=== PATIENT | male | born 1965 | race Two or more races ===

== ENCOUNTER 2019-04-23 12:13 | Inpatient (IN) | payer OTHER ==
[~2019-04-23] VITALS: Ht 180.3 cm; Wt 220.0 kg
--- NOTE | 2019-04-23 12:20 | NUR ---
"BIBRAFROM HOME FOR SOB ON EXERTION. 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
[2019-04-23] MEDS ORDERED: VANCOMYCIN 1 GM in IV D5W 250 ML IV ONE (12:30)
[2019-04-23] MEDS ORDERED: GENTAMICIN 80 MG in IV D5W 50 ML IV ONE (12:30)
[2019-04-23 12:38] LABS: BASOPHILS # (AUTO) 0.1 /CMM (0.0-0.2); BASOPHILS % (AUTO) 0.9 % (0.0-2.0); HEMATOCRIT 32 % (39-51); HEMOGLOBIN 9.8 g/dL (13.5-17.5); LYMPHOCYTES # (AUTO) 1.6 /CMM (0.8-4.8); LYMPHOCYTES % (AUTO) 13.4 % (20.0-44.0); MEAN CORPUSCULAR HGB CONC 31 g/dl (31.0-36.0); MEAN CORPUSCULAR VOLUME 79 fL (80-96); MONOCYTES # (AUTO) 1.2 /CMM (0.1-1.30); MONOCYTES % (AUTO) 10.2 % (2.0-12.0); NEUTROPHILS # (AUTO) 8.5 /CMM (1.8-8.9); NEUTROPHILS % (AUTO) 70.5 % (43.0-81.0); PLATELET COUNT (AUTO) 564 /CMM (150-450); RED BLOOD CELL COUNT(AUTO) 4.02 MIL/uL (4.5-6.0); WHITE BLOOD COUNT (AUTO) 12.1 K/uL (4.3-11.0)
[2019-04-23 12:48] LABS: CALCIUM, SERUM 8.5 mg/dL (8.5-10.1); CARBON DIOXIDE 29 mmol/L (21-32); CHLORIDE 103 mmol/L (98-107); CREATININE 0.8 mg/dL (0.6-1.3); GLUCOSE 112 mg/dL (74-106); POTASSIUM 3.5 mmol/L (3.5-5.1); SODIUM SERUM 137 mmol/L (136-145); UREA NITROGEN, BLOOD 13 mg/dL (7-18)
[2019-04-23 12:54] LABS: ALANINE AMINOTRANSFERASE 12 U/L (12-78); ALBUMIN 2.6 g/dL (3.4-5.0); ALKALINE PHOSPHATASE 68 U/L (46-116); ASPARTATE AMINOTRANSFERASE 11 U/L (15-37); BILIRUBIN,DIRECT 0.1 mg/dL (0.0-0.2); BILIRUBIN,TOTAL 0.3 mg/dL (0.2-1.0); TOTAL PROTEIN, SERUM 8.3 g/dL (6.4-8.2)
[2019-04-23 13:40] VITALS: BP 120/63
--- NOTE | 2019-04-23 13:56 | NUR ---
MEAT CUTTING TEACHER KHOA MEDINA [phone]
--- NOTE | 2019-04-23 14:56 | NUR ---
PT UNABLE TO GIVEN URINE AT THIS TIME. DR. JOYNER AWARE
--- NOTE | 2019-04-23 15:04 | NUR ---
REPORT GIVEN MONET VARMA FOR DANIEL
--- NOTE | 2019-04-23 15:28 | NUR ---
PT TRANSPORTED TO 3RD FLOOR
--- NOTE | 2019-04-23 16:28 | NUR ---
MS RN ADMITTING NOTES ADMITTED 54 Y/O MALE TO UNIT VIA GURNEY FROM [facility]. PT IS A/O X4. ABLE TO MAKE NEEDS KNOWN, WITH NO C/O PAIN OR DISCOMFORTS VOICED DURING ADMISSION. PT WITH ADMITTING DIAGNOSIS OF B/L LOWER EXTREMITIES CELLULITIS. ORIENTED TO STAFF AND ROOM. ON ROOM AIR, BREATHING EVEN AND UNLABORED. V/S TAKEN AND RECORDED. PHOTOS OF SKIN ISSUES TAKEN AND FILED IN CHART. PT WITH CLEAR LUNGS SOUNDS ON AUSCULTATION. ABDOMEN SOFT, NON-TENDER WITH + BOWELS SOUNDS ON FOUR QUADRANTS. PT WITH IV ACCESS ON LAC G #18 INTACT AND PATENT. SAFETY MEASURES INITIATED. BED IN LOW LOCKED POSITION WITH SIDE-RAILS UP X2. CALL LIGHT PLACED WITHIN EASY REACH OF PT. GRISELDA RIDLEY INFORMED OF PT'S ADMISSION TO UNIT, AWAITING ADMITTING ORDERS. WILL CONTINUE TO MONITOR PT.
[2019-04-23] MEDS ORDERED: BISACODYL (5 MG) 5 MG TABLET.DR PO PRN (17:30)
[2019-04-23] MEDS ORDERED: ZOLPIDEM TARTRATE 5 MG TABLET PO PRN (18:00)
[2019-04-23] MEDS ORDERED: ONDANSETRON HCL/PF 4 MG/2 ML VIAL IVP PRN (18:00)
[2019-04-23] MEDS ORDERED: MAGNESIUM HYDROXIDE 30 ML UDC PO PRN (18:00)
[2019-04-23] MEDS ORDERED: HYDROCODONE/APAP 5/325MG 1 EACH TABLET PO PRN (18:00)
[2019-04-23] MEDS ORDERED: MAG HYDROX/AL HYDROX/SIMETH 30 ML UDC PO PRN (18:00)
[2019-04-23] MEDS: ENOXAPARIN SODIUM 40 MG/0.4 ML DISP.SYRIN SQ SCH (18:27)
--- NOTE | 2019-04-23 18:31 | NUR ---
M/S RN CLOSING NOTES PATIENT IS CURRENTLY RESTING IN BED A/O x4. NO SIGNS OF ACUTE DISTRESS AND NO COMPLAINTS OF PAIN OR NAUSEA. ON ROOM AIR WITH BREATHING EVEN AND UNLABORED. PATIENT IS ABLE TO FOLLOW COMMANDS AND MAKE NEEDS KNOWN. IV ACCESS ON LAC G#18. SAFETY MEASURES ARE INITIATED WITH BED IN LOWEST POSTION, SIDE RAILS UP x2, AND CALL LIGHT WITHIN REACH. WILL ENDORSE TO ONCOMING NURSE ABOUT DANIEL.
--- NOTE | 2019-04-23 19:05 | NUR ---
RN MS OPENING NOTES RECEIVED PATIENT IN BED AWAKE ALERT AND ORIENTED X4 RESPIRATIONS EVEN AND UNLABORED WITH EQUAL RISE AND FALL OF CHEST, DENIES ANY PAIN OR DISCOMFORT AT THIS TIME, IV SITE TO LEFT AC #18 G SL INTACT AND PATENT, NO REDNESS, NO INFILTRATION PRESENT, ORIENTED TO STAFF AND CALL LIGHT AND KEPT WITH REACH, URINAL PROVIDED AND WITHIN REACH, MADE PATIENT AWARE TO CALL FOR ASSISTANCE AND TO NOT GET OUT OF BED UNASSISTED FOR SAFETY AND FALL PRECAUTIONS, VERBALIZES HE UNDERSTANDS , FLUIDS OFFERED, ALL NEEDS ATTENDED AT THIS TIME WILL CONTINUE TO MONITOR AND ATTEND TO NEEDS.
[2019-04-23 20:00] VITALS: BP 115/44
[2019-04-23] MEDS ORDERED: VANCOMYCIN 1 GM in IV D5W 250ml IV SCH (23:30)
[2019-04-23] MEDS ORDERED: VANCOMYCIN 1 GM VIAL ONE (23:55)
[2019-04-24 06:41] LABS: BASOPHILS # (AUTO) 0.1 /CMM (0.0-0.2); BASOPHILS % (AUTO) 0.6 % (0.0-2.0); EOSINOPHILS % (AUTO) 5.1 % (0.0-6.0); HEMATOCRIT 27 % (39-51); HEMOGLOBIN 8.7 g/dL (13.5-17.5); LYMPHOCYTES # (AUTO) 1.5 /CMM (0.8-4.8); LYMPHOCYTES % (AUTO) 15.8 % (20.0-44.0); MEAN CORPUSCULAR HGB CONC 32 g/dl (31.0-36.0); MEAN CORPUSCULAR VOLUME 78 fL (80-96); MONOCYTES # (AUTO) 1.1 /CMM (0.1-1.30); MONOCYTES % (AUTO) 11.7 % (2.0-12.0); NEUTROPHILS # (AUTO) 6.2 /CMM (1.8-8.9); NEUTROPHILS % (AUTO) 66.8 % (43.0-81.0); PLATELET COUNT (AUTO) 452 /CMM (150-450); RED BLOOD CELL COUNT(AUTO) 3.48 MIL/uL (4.5-6.0); WHITE BLOOD COUNT (AUTO) 9.4 K/uL (4.3-11.0)
[2019-04-24 06:48] LABS: CALCIUM, SERUM 8.2 mg/dL (8.5-10.1); CREATININE 0.6 mg/dL (0.6-1.3); PHOSPHORUS 3.4 mg/dL (2.5-4.9); POTASSIUM 3.6 mmol/L (3.5-5.1)
--- NOTE | 2019-04-24 07:00 | NUR ---
RN MS CLOSING NOTES PATIENT IN BED AWAKE ALERT AND ORIENTED X4 RESPIRATIONS EVEN AND UNLABORED WITH EQUAL RISE AND FALL OF CHEST, DENIES ANY PAIN OR DISCOMFORT AT THIS TIME, IV SITE TO LEFT AC #18 G SL INTACT AND PATENT, NO REDNESS, NO INFILTRATION PRESENT, CALL LIGHT KEPT WITH REACH, URINAL PROVIDED AND WITHIN REACH, MADE PATIENT AWARE TO CALL FOR ASSISTANCE AND TO NOT GET OUT OF BED UNASSISTED FOR SAFETY AND FALL PRECAUTIONS, VERBALIZES HE UNDERSTANDS , FLUIDS OFFERED, PERINEAL CARE PROVIDED, ALL NEEDS ATTENDED AT THIS TIME WILL CONTINUE TO MONITOR AND ATTEND TO NEEDS.
[2019-04-24 08:00] VITALS: BP 120/57
--- NOTE | 2019-04-24 08:00 | NUR ---
MS RN OPENING NOTES Received Patient asleep and resting in bed. VS stable with no acute distress. Breathing even and unlabored on room air with no respiratory distress. No signs and symptoms of pain. 18g PIV on LAC clean, intact, patent, and flushing well. Safety precautions in place. Bed locked and set to lowest position with side rails x 2 up. All needs rendered at this time. Call light within reach. Will continue to monitor.
[2019-04-24] MEDS ORDERED: FEE PK DOSING 1 MIN EA MC ONE (08:56)
--- NOTE | 2019-04-24 09:19 | NUR ---
WOUND CARE CONSULT: PT PRESENTS WITH REDNESS, SWELLING, WARMTH AND THICKENED SKIN TO BILATERAL LOWER LEGS WITH PURULENT DRAINAGE/WEEPING FROM RT LOWER LEG, PRESENT ON ADMISSION. PT NOTED TO HAVE SOME REDNESS/RASH TO GROIN/ABDOMINAL FOLDS AND PERINEUM, PRESENT ON ADMISSION. RECOMMENDATIONS MADE FOR SKIN PROTECTION AND DISCUSSED WITH NURSING STAFF. RECOMMEND DPM CONSULT FOR LOWER LEGS. DEFER TO DPM/VASCULAR TEAMS FOR LOWER LEGS. WILL SEE PRN. PT IS ON [employer] AIR BED. IN AGREEMENT WITH PLAN OF CARE. DR WALLS NOTIFIED ABOUT REQUEST FOR DPM CONSULT. Addendum: 04/24/19 at 0926 by DANYEL ZAMBRANO WNDNU Amended: Links added.
--- NOTE | 2019-04-24 10:30 | NUR ---
MS RN NOTES Explained and reviewed "Authorization for Use or Disclosure of Health Information" with Patient. Patient verbalized understanding and signed consent then placed in chart. Health Information to be released to [employer]. Handed health information to petroleum products sales representative, Delonte in front of Patient. Patient in stable condition. Will continue to monitor.
--- NOTE | 2019-04-24 10:43 | NUR ---
MS RN NOTES Per Britni VARMA, she will call the company who brought the Bariatric Bed to order the Overhead Trapeze.
--- NOTE | 2019-04-24 10:46 | NUR ---
MANAGER VAN PATIENT NEEDS OVER HEAD TRAPEZE FOR SHANA MAX 2 BED. MANAGER VAN CALLED DOWN TO [facility] AND SPOKE TO JOE AND HE WILL ORDER FROM [employer] TO BRING AND INSTALL ONTO BED. ALL DISCUSSED WITH EXERCISE RIDER.
[2019-04-24] MEDS: VANCOMYCIN 1.5 GM in IV D5W 500 ML IV SCH ×2 (11:55→22:03)
[2019-04-24] MEDS ORDERED: VANCOMYCIN 1 GM in IV NS 0.9% 250 ML IV SCH (12:00)
--- NOTE | 2019-04-24 14:03 | NUR ---
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 Per MD, place on contact isolation. Patient in stable condition. Will continue to monitor.
[2019-04-24 16:00] VITALS: BP 123/65
[2019-04-24] MEDS: CLOTRIMAZOLE 1% 15 GM TUBE TP SCH (17:07)
[2019-04-24] MEDS: MUPIROCIN OINT 2% 22 GM TUBE SCH (17:07)
[2019-04-24] MEDS: FERROUS SULFATE (325 MG) 325 MG/TAB TABLET PO SCH (17:36)
--- NOTE | 2019-04-24 19:19 | NUR ---
MS RN CLOSING NOTES Patient resting in bed. A/O x 4. VS stable with no acute distress. Breathing even and unlabored on room air with no respiratory distress. Denies pain. No signs and symptoms of pain. 18g PIV on LAC clean, intact, patent, and flushing well. RLE dressing clean, dry and intact. Bilateral lower extremities elevated with one pillow. Safety precautions in place. Bed locked and set to lowest position with side rails x 2 up. All needs rendered at this time. Call light within reach. Will endorse plan of care to oncoming shift.
--- NOTE | 2019-04-24 19:50 | NUR ---
RN OPENING NOTES: RECEIVED REPORT FROM DAYSHIFT RN NICK. FOUND Pt AWAKE, RESTING IN BED, WATCHING TV. ON ISO FOR MRSA NARES. Pt IS A/OX4, VERBAL, ABLE TO MAKE NEEDS KNOWN. IV ACCESS ON LAC #18G, SL. NO S/S OF ACUTE DISTRESS OR SOB NOTED. SAFETY MEASURES IN PLACE. BED LOW, LOCKED, HOB ELEVATED, SIDE RAILS UP, CALL LIGHT AND BEDSIDE TABLE WITHIN REACH. WILL CONTINUE TO MONITOR Pt's CONDITION AND SAFETY THROUGHOUT THE NIGHT.
[2019-04-24 20:00] VITALS: BP 123/65
[2019-04-24 20:34] VITALS: BP 123/60
[2019-04-24] MEDS: ENOXAPARIN SODIUM 40 MG/0.4 ML DISP.SYRIN SQ SCH (22:05)
--- NOTE | 2019-04-25 06:42 | NUR ---
RN CLOSING NOTES NO SIGNIFICANT CHANGES IN Pt's CONDITION. Pt REMAINS STABLE AT THIS TIME. NO S/S OF ACUTE DISTRESS OR SOB NOTED DURING THE NIGHT. Pt IS RESTING COMFORTABLY IN BED, WITH EVEN AND UNLABORED RESPIRATIONS. ALL NEEDS MET AND ATTENDED TO. SAFETY MEASURES IN PLACE. WILL ENDORSE TO DAYSHIFT RN FOR Pt's DANIEL.
[2019-04-25 06:53] LABS: BASOPHILS % (AUTO) 0.5 % (0.0-2.0); EOSINOPHILS % (AUTO) 4.3 % (0.0-6.0); HEMATOCRIT 30 % (39-51); HEMOGLOBIN 9.5 g/dL (13.5-17.5); LYMPHOCYTES # (AUTO) 1.4 /CMM (0.8-4.8); LYMPHOCYTES % (AUTO) 12.9 % (20.0-44.0); MEAN CORPUSCULAR HGB CONC 32 g/dl (31.0-36.0); MEAN CORPUSCULAR VOLUME 78 fL (80-96); MONOCYTES # (AUTO) 1.1 /CMM (0.1-1.30); MONOCYTES % (AUTO) 10.4 % (2.0-12.0); NEUTROPHILS # (AUTO) 7.7 /CMM (1.8-8.9); NEUTROPHILS % (AUTO) 71.9 % (43.0-81.0); PLATELET COUNT (AUTO) 474 /CMM (150-450); RED BLOOD CELL COUNT(AUTO) 3.81 MIL/uL (4.5-6.0); WHITE BLOOD COUNT (AUTO) 10.6 K/uL (4.3-11.0)
[2019-04-25 07:19] LABS: CALCIUM, SERUM 8.7 mg/dL (8.5-10.1); CREATININE 0.7 mg/dL (0.6-1.3); POTASSIUM 3.7 mmol/L (3.5-5.1)
[2019-04-25 07:43] LABS: IRON, SERUM 23 ug/dl (50-175); TOTAL IRON BINDING CAPACITY 155 ug/dl (250-450)
--- NOTE | 2019-04-25 07:50 | NUR ---
MS RN NOTES PATIENT IN BED, ALERT AND ORIENTED X 4. BREATHING EVEN AND UNLABORED RESPIRATIONS. DENIES PAIN, NO ACUTE DISTRESS, NO SOB NOTED. IV LAC #18G SALINE LOCKED, CLEAN, DRY, INTACT. SHOWS NO REDNESS, NO INFILTRATION. ALL PATIENT NEED MET. BED KEPT LOWEST POSITION, LOCKED, 2 SIDE RAILS UP. WILL CONTINUE TO MONITOR.
[2019-04-25 08:00] VITALS: BP 125/61
[2019-04-25] MEDS: VANCOMYCIN 1.5 GM in IV D5W 500 ML IV SCH (08:48)
[2019-04-25] MEDS: FERROUS SULFATE (325 MG) 325 MG/TAB TABLET PO SCH ×2 (08:51→17:17)
[2019-04-25] MEDS: CLOTRIMAZOLE 1% 15 GM TUBE TP SCH ×2 (08:52→17:25)
[2019-04-25] MEDS: MUPIROCIN OINT 2% 22 GM TUBE SCH ×2 (08:52→17:25)
[2019-04-25] MEDS ORDERED: FUROSEMIDE 20 MG/2 ML VIAL IV ONE (13:00)
[2019-04-25] MEDS: ALBUTEROL HALF STRENGTH 1.25 MG/3 ML VIAL.NEB NEB PRN (13:25)
[2019-04-25] MEDS: LINEZOLID RTU BAG 600 MG in PREMIX 1 EA IV SCH (13:50)
[2019-04-25 16:00] VITALS: BP 127/73
--- NOTE | 2019-04-25 18:11 | NUR ---
MS RN NOTES PATIENT IN BED, AWAKE, ALERT AND ORIENTED X 4. BREATHING EVEN AND UNLABORED RESPIRATIONS. DENIES PAIN, NO ACUTE DISTRESS, NO SOB NOTED. IV LAC SALINE LOCK, IV RAC SALINE LOCK, IV LEFT WRIST RUNNING ZYVOX. ALL SITES ARE CLEAN, DRY, INTACT. NO SIGNS OF INFILTRATION, NO REDNESS. ALL PATIENT NEEDS MET. BED KEPT LOWEST POSITION, WITH 2 SIDE RAILS UP, CALL LIGHT WITHIN REACH. WILL CONTINUE TO MONITOR.
--- NOTE | 2019-04-25 19:50 | NUR ---
RN OPENING NOTES: RECEIVED REPORT FROM DAYSWYFT AVANI NARVAEZ. FOUND Pt AWAKE, RESTING IN BED, WATCHING TV. ON ISO FOR MRSA NARES. Pt IS A/OX4, VERBAL, ABLE TO MAKE NEEDS KNOWN. IV ACCESS ON LAC #18G, SL & RAC #18G, SL & LWRIST #20G @TKO. NO S/S OF ACUTE DISTRESS OR SOB NOTED. SAFETY MEASURES IN PLACE. BED LOW, LOCKED, HOB ELEVATED, SIDE RAILS UP, CALL LIGHT AND BEDSIDE TABLE WITHIN REACH. WILL CONTINUE TO MONITOR Pt's CONDITION AND SAFETY THROUGHOUT THE NIGHT.
[2019-04-25 20:00] VITALS: BP 123/52
[2019-04-25] MEDS: ENOXAPARIN SODIUM 40 MG/0.4 ML DISP.SYRIN SQ SCH (20:38)
[2019-04-26] MEDS: LINEZOLID RTU BAG 600 MG in PREMIX 1 EA IV SCH ×2 (01:34→12:11)
[2019-04-26 06:34] LABS: CALCIUM, SERUM 8.6 mg/dL (8.5-10.1); CREATININE 0.7 mg/dL (0.6-1.3); POTASSIUM 3.8 mmol/L (3.5-5.1)
--- NOTE | 2019-04-26 07:34 | NUR ---
MS RN OPENING NOTES: RECEIVED PT AWAKE IN BED IN NO ACUTE SIGNS OF DISTRESS. HOB ELEVATED. A/O X2. ABLE TO MAKE NEEDS KNOWN, DENIES PAIN OR ANY DISCOMFORTS AT THIS TIME. ON ROOM AIR, BREATHING EVEN AND UNLABORED. CONTACT PRECAUTIONS MAINTAINED FOR MRSA OF WOUNDS AND NARES. IV ACCESSES ON LAC #18G, SL & RAC #18G, SL & L WRIST #20G @TKO. SAFETY MEASURES IN PLACE. BED IN LOW LOCKED POSITION WITH SIDE RAILS UP X2. CALL LIGHT AND BEDSIDE TABLE WITHIN EASY REACH OF PT. WILL CONTINUE TO MONITOR PT ACCORDINGLY.
[2019-04-26 08:00] VITALS: BP 116/67
[2019-04-26] MEDS: FERROUS SULFATE (325 MG) 325 MG/TAB TABLET PO SCH ×2 (08:19→16:58)
[2019-04-26] MEDS: CLOTRIMAZOLE 1% 15 GM TUBE TP SCH ×2 (08:20→16:58)
[2019-04-26] MEDS: Z GUARD REMEDY 2 OZ OINT TP PRN ×2 (08:20→16:58)
[2019-04-26] MEDS: MUPIROCIN OINT 2% 22 GM TUBE SCH ×2 (08:25→16:58)
[2019-04-26 16:00] VITALS: BP 145/74
--- NOTE | 2019-04-26 18:38 | NUR ---
MS RN CLOSING NOTES: PT IN BED AWAKE AND RESTING AT MODERATE HIGH BACKREST POSITION. A/O X3, SAME ABLE TO VERBALIZED NEEDS. ON PRN SUPPLEMENTAL 02 VIA N/C AT 2LPM, TOLERATING WELL WITH NO SOB NOTED AT THIS TIME. CONTACT PRECAUTIONS MAINTAINED FOR MRSA OF WOUNDS AND NARES. PT WITH IV ACCESSES ON LAC #18G, SL, RAC #18G, SL & L WRIST #20G @ TKO, NO S/S OF INFECTIONS OR REDNESS AT SITES NOTED. PT ASSISTED IN TURNING FROM SIDE TO SIDE Q 2HRS AND PRN. KEPT CLEAN, DRY AND COMFORTABLE AT ALL TIMES. SAFETY MEASURES KEPT IN PLACE. BED IN LOW LOCKED POSITION WITH SIDE RAILS UP X2. CALL LIGHT AND BEDSIDE TABLE WITHIN EASY REACH OF PT. WILL ENDORSE TO SKIN CARE INSTRUCTOR NURSE FOR DANIEL..
[2019-04-26 20:00] VITALS: BP 90/69
--- NOTE | 2019-04-26 20:00 | NUR ---
RN NOTES RECEIVED PT. AWAKE ON BED, A/OX4, OBESE, ON BARIMAXX BED, DENIES PAIN, NO SOB, CALL LIGHT WITHIN REACH, SIDERAILSUPX2, CONTINUE TO MONITOR
[2019-04-26] MEDS: ENOXAPARIN SODIUM 40 MG/0.4 ML DISP.SYRIN SQ SCH (21:50)
[2019-04-27] MEDS: LINEZOLID RTU BAG 600 MG in PREMIX 1 EA IV SCH (00:56)
[2019-04-27 06:47] LABS: CALCIUM, SERUM 8.4 mg/dL (8.5-10.1); CREATININE 0.6 mg/dL (0.6-1.3); POTASSIUM 4.1 mmol/L (3.5-5.1)
--- NOTE | 2019-04-27 06:48 | NUR ---
RN NOTES AWAKE, NOT IN DISTRESS, NO PAIN NOTED,. MORNING CARE RENDERED, PT. NEEDS ATTENDED
--- NOTE | 2019-04-27 07:20 | NUR ---
RN OPENING NOTES RECEIVED PATIENT IN BED RESTING. A/OX4, ABLE TO MAKE NEEDS KNOWN. NOT IN NAY FOR OF DISTRESS. NO SOB, ON 2LPM O2 SATTING 96%. DENIED PAIN OR DISCOMFORT AT THIS TIME. IV ACCESS INTACT AND PATENT. MAINTAINED ISOLATION PRECAUTIONS FOR MRSA NARES AND WOUNDS. KEPT CLEAN, SAFE AND COMFORTABLE. BED IN LOW/LOCKED PSOITION, SIDERAILS UP. ON BARIMAX BED. CALL LIGHT IN REACH. WILL CONT EMILIANO MONITOR ACCORDINGLY.
[2019-04-27 08:00] VITALS: BP 141/72
[2019-04-27] MEDS: FERROUS SULFATE (325 MG) 325 MG/TAB TABLET PO SCH ×2 (08:56→16:28)
[2019-04-27] MEDS: CLOTRIMAZOLE 1% 15 GM TUBE TP SCH ×2 (09:01→16:29)
[2019-04-27] MEDS: MUPIROCIN OINT 2% 22 GM TUBE SCH ×2 (09:01→16:29)
[2019-04-27] MEDS: LINEZOLID 600 MG TABLET PO SCH ×2 (13:28→21:24)
--- NOTE | 2019-04-27 14:00 | NUR ---
rn notes endorsed patient in stable condition to holger rivera for continuity of care.
--- NOTE | 2019-04-27 14:30 | NUR ---
m/s jawbone breaker: notes received pt in bed awake, a/ox4. no c/o pain or any discomfort at this time. f/u made to [facility] lab re: wound cx vre sensitivities, spoke to ashanti and will f/u with the results and will need a little bit of time as stated.
[2019-04-27 16:00] VITALS: BP 126/68
--- NOTE | 2019-04-27 16:39 | NUR ---
m/s assembly line upholsterer: notes resting comfortable in bed. asked if he wants pm care, stated, "no, not right now." instructed to call for assistance. will continue to monitor.
--- NOTE | 2019-04-27 18:35 | NUR ---
m/s cloth burler: notes pt resting comfortable in bed. no distress noted. needs attended. instructed to call for assistance.
--- NOTE | 2019-04-27 19:00 | NUR ---
m/s test operator: notes report given to kelsey (rn) for continuity of care.
--- NOTE | 2019-04-27 19:00 | NUR ---
MS RN OPENING NOTES: RECEIVED PATIENT RESTING IN BED COMFORTABLY, AWAKE A/O X4. NO C/O PAIN. NO SOB. CALL LIGHT WITHIN REACH. BED IN LOWEST AND LOCKED POSITION. ON CONTACT ISOLATION.
[2019-04-27 20:00] VITALS: BP 162/78
[2019-04-27] MEDS: ENOXAPARIN SODIUM 40 MG/0.4 ML DISP.SYRIN SQ SCH (21:26)
[2019-04-28] MEDS: ALBUTEROL HALF STRENGTH 1.25 MG/3 ML VIAL.NEB NEB PRN (01:48)
--- NOTE | 2019-04-28 01:53 | NUR ---
PATIENT COMPLAINED OF SOB. WHEEZING. CALLED RT BUCK AND PATIENT GIVEN BREATHING TREATMENT.
--- NOTE | 2019-04-28 06:55 | NUR ---
MS RN CLOSING NOTES: PATIENT RESTING COMFORTABLY IN BED, AWAKE ALERT AND ORIENTED X4. NO C/O PAIN. IV REINSERTED ON THE RIGHT HAND G24. CALL LIGHT WITHIN REACH. BED IN LOWEST AND LOCKED POSITION. NO ACUTE EVENTS OVERNIGHT.
[2019-04-28 07:23] LABS: CALCIUM, SERUM 8.6 mg/dL (8.5-10.1); CREATININE 0.6 mg/dL (0.6-1.3); POTASSIUM 4.7 mmol/L (3.5-5.1)
--- NOTE | 2019-04-28 07:25 | NUR ---
RN OPENING NOTES RECEIVED PATIENT IN BED RESTING. A/OX4, ABLE TO MAKE NEEDS KNOWN. NOT IN NAY FOR OF DISTRESS. NO SOB, ON 2LPM O2 SATTING 96%. DENIED PAIN OR DISCOMFORT AT THIS TIME. IV ACCESS INTACT AND PATENT. MAINTAINED ISOLATION PRECAUTIONS FOR MRSA NARES AND WOUNDS. KEPT CLEAN, SAFE AND COMFORTABLE. BED IN LOW/LOCKED PSOITION, SIDERAILS UP. ON BARIMAX BED. CALL LIGHT IN REACH. WILL CONT TO MONITOR ACCORDINGLY.
[2019-04-28] MEDS: ACETAMINOPHEN 325 MG TABLET PO PRN (07:42)
[2019-04-28 08:00] VITALS: BP 149/90
[2019-04-28] MEDS: LINEZOLID 600 MG TABLET PO SCH ×2 (09:12→21:26)
[2019-04-28] MEDS: FERROUS SULFATE (325 MG) 325 MG/TAB TABLET PO SCH ×2 (09:13→18:09)
[2019-04-28] MEDS: CLOTRIMAZOLE 1% 15 GM TUBE TP SCH ×2 (09:18→18:09)
[2019-04-28] MEDS: MUPIROCIN OINT 2% 22 GM TUBE SCH ×2 (09:18→18:10)
--- NOTE | 2019-04-28 10:00 | NUR ---
RN NOTES CALLED LAB, SPOKE WITH ROSARIO, AND FOLLOWED UP TH REPORT FOR AOUND CX VRE SENSITIVITIES. PER PAUL, "RESULTS NOT OUT YET" BUT SHE WILL CALL MARTIN BETTS TO FOLLOW UP. Addendum: 04/28/19 at 1010 by DARIN PARKER ROSARIO CALLED BACK AND SAYING THAT PER MARTIN BETTS, THE RESULTS WILL BE OUT TOMORROW
[2019-04-28] MEDS: LEVOFLOXACIN 750 MG /D5W 150ML 750 MG in PREMIX 1 EA IV SCH (11:48)
[2019-04-28 16:00] VITALS: BP 124/67
--- NOTE | 2019-04-28 19:38 | NUR ---
rn closing notes patient in stable condition. all needs attended and provided. all due meds given as ordered. kept patient safe and comfortable. turned and repositioned patient every 2hrs as needed. wound care rendered. bed in low/locked position, siderails upx2, call light in reach. endorsed to night rn for loni.
[2019-04-28 20:00] VITALS: BP 138/65
[2019-04-28] MEDS: ENOXAPARIN SODIUM 40 MG/0.4 ML DISP.SYRIN SQ SCH (21:16)
[2019-04-29] MEDS: ACETAMINOPHEN 325 MG TABLET PO PRN (05:09)
--- NOTE | 2019-04-29 05:09 | NUR ---
tyelnol administered prn per patient requst for lee of 3/10 pain as ordered.
[2019-04-29 07:13] LABS: BASOPHILS % (AUTO) 0.3 % (0.0-2.0); EOSINOPHILS % (AUTO) 11.6 % (0.0-6.0); HEMATOCRIT 31 % (39-51); LYMPHOCYTES # (AUTO) 1.5 /CMM (0.8-4.8); LYMPHOCYTES % (AUTO) 15.1 % (20.0-44.0); MEAN CORPUSCULAR HGB CONC 32 g/dl (31.0-36.0); MEAN CORPUSCULAR VOLUME 78 fL (80-96); MONOCYTES # (AUTO) 0.9 /CMM (0.1-1.30); MONOCYTES % (AUTO) 8.8 % (2.0-12.0); NEUTROPHILS # (AUTO) 6.4 /CMM (1.8-8.9); NEUTROPHILS % (AUTO) 64.2 % (43.0-81.0); PLATELET COUNT (AUTO) 442 /CMM (150-450); RED BLOOD CELL COUNT(AUTO) 4.01 MIL/uL (4.5-6.0)
[2019-04-29 07:25] LABS: CALCIUM, SERUM 8.8 mg/dL (8.5-10.1); CREATININE 0.7 mg/dL (0.6-1.3); POTASSIUM 4.1 mmol/L (3.5-5.1)
[2019-04-29 08:00] VITALS: BP 151/81
--- NOTE | 2019-04-29 08:00 | NUR ---
MS RN OPENING NOTES Received Patient resting in bed. A/O x 4. VS stable with no acute distress. Breathing even and unlabored on room air with no respiratory distress. Denies pain. 24g PIV on right hand clean, intact, patent and flushing well. Lower extremity dressings clean, dry and intact. Safety precautions in place. Bed locked and set to lowest position with side rails x 2 up. All needs rendered at this time. Call light within reach. Will continue to monitor.
[2019-04-29] MEDS: FERROUS SULFATE (325 MG) 325 MG/TAB TABLET PO SCH ×2 (09:10→18:35)
[2019-04-29] MEDS: LINEZOLID 600 MG TABLET PO SCH ×2 (09:10→21:13)
[2019-04-29] MEDS: CLOTRIMAZOLE 1% 15 GM TUBE TP SCH ×2 (09:11→18:36)
[2019-04-29] MEDS: MUPIROCIN OINT 2% 22 GM TUBE SCH ×2 (09:12→18:35)
[2019-04-29] MEDS: LEVOFLOXACIN 750 MG /D5W 150ML 750 MG in PREMIX 1 EA IV SCH (12:53)
[2019-04-29 16:00] VITALS: BP 141/75
[2019-04-29] MEDS: LACTOBACILLUS RHAMNOSUS GG 1 EACH CAP.SPRINK PO SCH (18:35)
--- NOTE | 2019-04-29 19:01 | NUR ---
MS RN CLOSING NOTES Patient resting in bed and watching TV. A/O x 4. VS stable with no acute distress. Breathing even and unlabored on room air with no respiratory distress. Denies pain. 24g PIV on right hand clean, intact, patent and flushing well. Lower extremity dressings clean, dry and intact. Safety precautions in place. Bed locked and set to lowest position with side rails x 4 up. All needs rendered at this time. Call light within reach. Will endorse plan of care to oncoming shift.
[2019-04-29 20:00] VITALS: BP 135/72
[2019-04-29] MEDS: ENOXAPARIN SODIUM 40 MG/0.4 ML DISP.SYRIN SQ SCH (21:14)
--- NOTE | 2019-04-29 21:20 | NUR ---
PATIENT REFUSING PICTURES OF HIS GROIN BEING TAKEN, ABD FOLDS. STATES "I DON'T WANT YOU TAKNING PICTURES OF THOSE AREAS. I DON'T KNOW WHAT USE THEY ARE, JUDI WHERE THOSE PICTURES ARE GOING." INFORMED PICTURES GO TO CHART FOR RECORD KEEPING VERBALIZED UNDERSTANDING STILL REFUSING PICTURES OF GROIN AND ABD FOLDS. STATES ITS OK TO TOAKE PICTURES OF LEGS.
[2019-04-30 07:12] LABS: CALCIUM, SERUM 8.7 mg/dL (8.5-10.1); CREATININE 0.7 mg/dL (0.6-1.3); POTASSIUM 4.3 mmol/L (3.5-5.1)
--- NOTE | 2019-04-30 07:38 | NUR ---
MS RN NOTES PATIENT RECEIVED RESTING INSIDE ROOM. SLEEPING, AROUSABLE THROUGH VERBAL AND TACTILE STIMULI. NO ACUTE DISTRESS. DENIES ANY PAIN OR DISCOMFORT. MAINTAINED ISOLATION PRECAUTIONS. WILL CONTINUE TO MONITOR. BED LOCKED AND IN LOW POSITION. BILATERAL UPPER SIDE RAILS UP AND LOCKED. CALL LIGHT WITHIN EASY REACH
[2019-04-30 08:00] VITALS: BP 153/80
[2019-04-30] MEDS: LINEZOLID 600 MG TABLET PO SCH ×2 (08:38→20:21)
[2019-04-30] MEDS: FERROUS SULFATE (325 MG) 325 MG/TAB TABLET PO SCH ×2 (08:38→17:31)
[2019-04-30] MEDS: LACTOBACILLUS RHAMNOSUS GG 1 EACH CAP.SPRINK PO SCH ×2 (08:38→17:31)
[2019-04-30] MEDS: MUPIROCIN OINT 2% 22 GM TUBE SCH ×2 (08:39→18:25)
[2019-04-30] MEDS: CLOTRIMAZOLE 1% 15 GM TUBE TP SCH ×2 (08:39→18:25)
[2019-04-30] MEDS: LEVOFLOXACIN (750 MG) 750 MG TABLET PO SCH (12:21)
[2019-04-30 16:00] VITALS: BP 118/65
--- NOTE | 2019-04-30 18:51 | NUR ---
MS RN NOTES PATIENT RESTING INSIDE ROOM. AWAKE, ALERT AND ORIENTED. NO ACUTE DISTRESS. DENIES ANY PAIN OR DISCOMFORT. TRAPEZE IN PLACE ON BED AND PATIENT ABLE TO UTILIZE PROPERLY. PATIENT KEPT CLEAN, DRY AND COMFORTABLE. PROVIDED WITH CALM, SAFE, HAZARD-FREE ENVIRONMENT. MAINTAINED ISOLATION PRECAUTIONS. CALL LIGHT WITHIN EASY REACH
--- NOTE | 2019-04-30 19:45 | NUR ---
MS RN OPENING NOTES RECEIVED PATIENT FROM MORNING SHIFT, ALERT AND ORIENTED X 4. VERBALLY RESPONSIVE AND ABLE TO FOLLOW DIRECTIONS. BREATHING REGULAR AND UNLABORED ON ROOM AIR. RIGHT HAND IV LINE G24 INTACT AND PATENT, FLUSHING WELL WITH NO BLEEDING OR S/S OF INFECTION/INFILTRATION NOTED. NO COMPLAINTS OF PAIN/DISCOMFORT REPORTED OF THE TIME. ON CONTACT ISOLATION, PROPER HAND WASHING AND ISOLATION PRECAUTION OBSERVED. BED LOW AND LOCKED ON SEMI FOWLERS POSITION. CALL LIGHT IN REACH. WILL CONTINUE TO MONITOR.
[2019-04-30 20:00] VITALS: BP 148/74
[2019-04-30] MEDS: ENOXAPARIN SODIUM 40 MG/0.4 ML DISP.SYRIN SQ SCH (20:21)
[2019-04-30 22:00] VITALS: BP 148/74
--- NOTE | 2019-05-01 06:20 | NUR ---
MS RN CLOSING NOTES RECEIVED PATIENT FROM MORNING SHIFT, ALERT AND ORIENTED X 4. VERBALLY RESPONSIVE AND ABLE TO FOLLOW DIRECTIONS. BREATHING REGULAR AND UNLABORED ON ROOM AIR. RIGHT HAND IV LINE G24 INTACT AND PATENT, FLUSHING WELL WITH NO BLEEDING OR S/S OF INFECTION/INFILTRATION NOTED. NO COMPLAINTS OF PAIN/DISCOMFORT REPORTED WITHIN THE SHIFT. MAINTAINED ON CONTACT ISOLATION. WOUND TREATMENTS PROVIDED. BED LOW AND LOCKED ON SEMI FOWLERS POSITION. CALL LIGHT IN REACH. WILL ENDORSE TO MORNING SHIFT FOR DANIEL.
--- NOTE | 2019-05-01 07:45 | NUR ---
MS/RN - Assessment Patient is awake, A/O x 4, denies pain, stable on room air. Saline lock on the right hand is patent, intact, with no signs of infiltration. Will do wound treatment as ordered. No labs today. All needs attended. Fall precautions maintained. 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 Awaiting acceptance from SNF. Will continue with current medical management.
[2019-05-01 08:00] VITALS: BP 157/75
[2019-05-01] MEDS: CLOTRIMAZOLE 1% 15 GM TUBE TP SCH ×2 (08:05→16:33)
[2019-05-01] MEDS: LACTOBACILLUS RHAMNOSUS GG 1 EACH CAP.SPRINK PO SCH ×2 (08:05→16:33)
[2019-05-01] MEDS: LINEZOLID 600 MG TABLET PO SCH ×2 (08:05→21:18)
[2019-05-01] MEDS: FERROUS SULFATE (325 MG) 325 MG/TAB TABLET PO SCH ×2 (08:05→16:33)
[2019-05-01] MEDS: MUPIROCIN OINT 2% 22 GM TUBE SCH ×2 (08:06→16:34)
[2019-05-01] MEDS: LEVOFLOXACIN (750 MG) 750 MG TABLET PO SCH (11:35)
[2019-05-01 16:00] VITALS: BP 139/87
--- NOTE | 2019-05-01 18:21 | NUR ---
MS/RN - End of shift assessment No significant change in condition seen, remain afebrile, not in any form of distress. Still waiting for acceptance from SNF. Will continue with current plan of care.
[2019-05-01 20:00] VITALS: BP 130/69
--- NOTE | 2019-05-01 20:00 | NUR ---
MS RN NOTES RECEIVED PATIENT AWAKE IN BED WITH NO DISTRESS NOTED. CALL LIGHT WITHIN REACH. NO C/O PAIN OR DISCOMFORT. NO C/O PAIN OR DISCOMFORT. PERIPHERAL LINE INTACT AND PATENT. ROOM FREE OF CLUTTER AND BELONGINGS KEPT NEAR BEDSIDE. BED IN LOW LOCK SETTING. WILL CONTINUE TO MONITOR.
[2019-05-01] MEDS: ENOXAPARIN SODIUM 40 MG/0.4 ML DISP.SYRIN SQ SCH (21:18)
--- NOTE | 2019-05-02 06:47 | NUR ---
MS RN NOTES PATIENT ASLEEP IN BED WITH NO DISTRESS NOTED. CALL LIGHT WITHIN REACH. ALL DUE MEDS GIVEN ORDERED WITH NO ASE NOTED. PERIPHERAL LINE PULLED OUT, PER PATIENT HE DOES NOT TAKE ANY IV MEDS AND DOES NOT WANT PERIPHERAL LINE REPLACED AT THIS TIME. WILL ENDORSE TO ONCOMING SHIFT AND AM MD. BLE WOUND CARE RENDERED AND TOLERATED WELL. NO C/O PAIN OR DISCOMFORT. BED IN LOW LOCK SETTING. ALL BELONGINGS KEPT NEAR BEDSIDE.
--- NOTE | 2019-05-02 07:33 | NUR ---
MS RN NOTES PATIENT RECEIVED RESTING INSIDE ROOM. AWAKE, ALERT AND ORIENTED X 4, NO ACUTE DISTRESS. DENIES ANY PAIN OR DISCOMFORT. NO CHANGES IN LOC NOTED AT THIS TIME. PATIENT CALM AND RELAXED. NO IV ON PATIENT, PER SHIFT CHANGE REPORT, PATIENT REFUSES IV INSERTION. SPOKE WITH PATIENT, RISKS AND BENEFITS EXPLAINED BUT TO NO AVAIL. MD AWARE. WILL CONTINUE TO MONITOR. BED LOCKED AND IN LOW POSITION. BILATERAL UPPER SIDE RAILS UP AND LOCKED. MAINTAINED ISOLATION PRECAUTIONS. CALL LIGHT WITHIN EASY REACH
[2019-05-02 08:00] VITALS: BP 166/80
[2019-05-02] MEDS: LINEZOLID 600 MG TABLET PO SCH ×2 (08:41→20:30)
[2019-05-02] MEDS: FERROUS SULFATE (325 MG) 325 MG/TAB TABLET PO SCH ×2 (08:41→17:17)
[2019-05-02] MEDS: LACTOBACILLUS RHAMNOSUS GG 1 EACH CAP.SPRINK PO SCH ×2 (08:41→17:17)
[2019-05-02] MEDS: MUPIROCIN OINT 2% 22 GM TUBE SCH ×2 (08:48→17:19)
[2019-05-02] MEDS: CLOTRIMAZOLE 1% 15 GM TUBE TP SCH ×2 (08:48→17:19)
[2019-05-02] MEDS: LEVOFLOXACIN (750 MG) 750 MG TABLET PO SCH (12:16)
[2019-05-02 16:00] VITALS: BP 129/81
--- NOTE | 2019-05-02 19:16 | NUR ---
MS RN NOTES PATIENT RESTING INSIDE ROOM. NO ACUTE DISTRESS. DENIES ANY PAIN OR DISCOMFORT. PATIENT KEPT CLEAN, DRY AND COMFORTABLE. PROVIDED WITH CALM, SAFE, HAZARD-FREE ENVIRONMENT. MAINTAINED ISOLATION PRECAUTIONS. WILL ENDORSE TO INCOMING SHIFT FOR DANIEL. BED LOCKED AND IN LOW POSITION. BILATERAL UPPER SIDE RAILS UP AND LOCKED. CALL LIGHT WITHIN EASY REACH
--- NOTE | 2019-05-02 19:40 | NUR ---
MS RN OPENING NOTES RECEIVED PATIENT FROM MORNING SHIFT, ALERT AND ORIENTED X 4. VERBALLY RESPONSIVE AND ABLE TO FOLLOW DIRECTIONS. BREATHING REGULAR AND UNLABORED ON ROOM AIR. NO IV ACCESS. NO COMPLAINTS OF PAIN/DISCOMFORT REPORTED OF THE TIME. ON CONTACT ISOLATION, PROPER HAND WASHING AND ISOLATION PRECAUTION OBSERVED. BED LOW AND LOCKED ON SEMI FOWLERS POSITION. CALL LIGHT IN REACH. WILL CONTINUE TO MONITOR.
[2019-05-02 20:23] VITALS: BP 130/71
[2019-05-02] MEDS: ENOXAPARIN SODIUM 40 MG/0.4 ML DISP.SYRIN SQ SCH (20:31)
[2019-05-02 22:00] VITALS: BP 130/71
--- NOTE | 2019-05-03 06:20 | NUR ---
MS RN CLOSING NOTES RECEIVED PATIENT FROM MORNING SHIFT, ALERT AND ORIENTED X 4. VERBALLY RESPONSIVE AND ABLE TO FOLLOW DIRECTIONS. BREATHING REGULAR AND UNLABORED ON ROOM AIR. NO IV ACCESS, REFUSED REINSERTION OFFERED 3X, RISK AND BENEFITS EXPLAINED. NO COMPLAINTS OF PAIN/DISCOMFORT REPORTED WITHIN THE SHIFT. MAINTAINED ON CONTACT ISOLATION. WOUND TREATMENTS PROVIDED. BED LOW AND LOCKED ON SEMI FOWLERS POSITION. CALL LIGHT IN REACH. WILL ENDORSE TO MORNING SHIFT FOR DANIEL.
--- NOTE | 2019-05-03 07:15 | NUR ---
RN OPENING NOTES RECEIVED PATIENT IN BED RESTING. A/OX4, ABLE TO MAKE NEEDS KNOWN. NOT IN ANY FORM OF DISTRESS. NO SOB, ON 2LPM O2 SATTING 96%. DENIED PAIN OR DISCOMFORT AT THIS TIME. NO IV ACCESS NOTED. MAINTAINED ISOLATION PRECAUTIONS FOR MRSA NARES AND WOUNDS. KEPT CLEAN, SAFE AND COMFORTABLE. BED IN LOW/LOCKED PSOITION, SIDERAILS UP. ON BARIMAX BED. CALL LIGHT IN REACH. WILL CONT TO MONITOR ACCORDINGLY.
[2019-05-03 08:00] VITALS: BP 122/69
--- NOTE | 2019-05-03 08:30 | NUR ---
rn notes offered turning and repositioning. patient refused and stated "im ok, i can move". reminded patient that he needs to move and turn while in bed to prevent bedsores, patient verbalized understanding.
[2019-05-03] MEDS: LACTOBACILLUS RHAMNOSUS GG 1 EACH CAP.SPRINK PO SCH ×2 (08:37→16:19)
[2019-05-03] MEDS: FERROUS SULFATE (325 MG) 325 MG/TAB TABLET PO SCH ×2 (08:37→16:19)
[2019-05-03] MEDS: CLOTRIMAZOLE 1% 15 GM TUBE TP SCH ×2 (08:38→16:22)
[2019-05-03] MEDS: MUPIROCIN OINT 2% 22 GM TUBE SCH ×2 (08:38→16:22)
[2019-05-03] MEDS: LINEZOLID 600 MG TABLET PO SCH ×2 (08:41→21:16)
[2019-05-03 16:00] VITALS: BP 146/75
[2019-05-03] MEDS: LEVOFLOXACIN (750 MG) 750 MG TABLET PO SCH (16:19)
--- NOTE | 2019-05-03 19:04 | NUR ---
RN CLOSING NOTES PATIENT IN STABLE CONDITION. ALL NEEDS ATTENDED AND PROVIDED. ALL DUE MEDICATION GIVEN ORDERED. KEPT PATIENT SAFE AND COMFORTABLE. BED IN LOW/LOCKED POSITION. SIDERAILS UP, CALL LIGHT IN REACH. WILL ENDORSED TO NIGHT RN FOR DANIEL.
[2019-05-03 20:00] VITALS: BP 144/74
[2019-05-03] MEDS: ENOXAPARIN SODIUM 40 MG/0.4 ML DISP.SYRIN SQ SCH (21:16)
--- NOTE | 2019-05-04 06:26 | NUR ---
MS RN NOTES AWAKE & RESPONSIVE. NOT IN ANY DISTRESS. NO SOB NOTED. DENIES ANY PAIN OR DISCOMFORT AT THIS TIME. AM CARE DONE. MONITORED ACCORDINGLY. CALL LIGHT WITHIN REACH. BED IN LOWEST POSITION. SR UP X 2 FOR SAFETY. WILL ENDORSE TO NEXT SHIFT.
--- NOTE | 2019-05-04 07:14 | NUR ---
RN OPENING NOTE PT WAS RECEIVED IN BED AT LOWEST AND LOCKED POSITION WITH SIDE RAILS UP X2, A/O X4 BREATHING EVEN AND UNLABORED ON RA, NO S/S OF ANY DISTRESS OR PAIN AT THIS TIME, NO IV ACCESS, AWAITING PLACEMENT, SAFETY PRECAUTIONS IN PLACE, CALL LIGHT IN REACH, WILL MONITOR ACCORDINGLY
[2019-05-04 08:00] VITALS: BP 147/78
[2019-05-04] MEDS: FERROUS SULFATE (325 MG) 325 MG/TAB TABLET PO SCH ×2 (08:12→16:24)
[2019-05-04] MEDS: LACTOBACILLUS RHAMNOSUS GG 1 EACH CAP.SPRINK PO SCH ×2 (08:12→16:24)
[2019-05-04] MEDS: LINEZOLID 600 MG TABLET PO SCH ×2 (08:12→21:42)
[2019-05-04] MEDS: MUPIROCIN OINT 2% 22 GM TUBE SCH ×2 (08:13→16:24)
[2019-05-04] MEDS: CLOTRIMAZOLE 1% 15 GM TUBE TP SCH ×2 (08:13→16:24)
[2019-05-04] MEDS: LEVOFLOXACIN (750 MG) 750 MG TABLET PO SCH (11:29)
[2019-05-04 16:00] VITALS: BP 122/75
--- NOTE | 2019-05-04 18:13 | NUR ---
RN CLOSING NOTE PT IN BED AT LOWEST AND LOCKED POSITION WITH SIDE RAILS UP X2, A/O X4 BREATHING EVEN AND UNLABORED WITH NO DISTRESS OR PAIN AT THIS TIME, ALL NEEDS ATTENDED THROUGHOUT SHIFT, SAFETY PRECAUTIONS IN PLACE, CALL LIGHT IN REACH, WILL ENDORSE TO NIGHT RN FOR DANIEL.
--- NOTE | 2019-05-04 19:15 | NUR ---
MS RN NOTES RECEIVED PT IN BED AWAKE AND ABLE TO MAKE NEEDS KNOWN. PT A/O X3. RESPIRATIONS EVEN AND UNLABORED WITH NO S/S OF ACUTE DISTRESS OR SOB NOTED. NO COMPLAINTS OF PAIN AT THIS TIME. SAFETY MEASURES IN PLACE WITH BED IN LOWEST LOCKED POSITION WITH SIDE RAILS UP X2. CALL LIGHT WITHIN REACH. WILL CONTINUE TO MONITOR.
[2019-05-04 20:00] VITALS: BP 138/66
[2019-05-04] MEDS: ENOXAPARIN SODIUM 40 MG/0.4 ML DISP.SYRIN SQ SCH (22:11)
--- NOTE | 2019-05-05 07:46 | NUR ---
MS RN NOTES PT IN BED AWAKE AND ABLE TO MAKE NEEDS KNOWN. PT A/O X3. RESPIRATIONS EVEN AND UNLABORED WITH NO S/S OF ACUTE DISTRESS OR SOB NOTED THROUGHOUT SHIFT. NO COMPLAINTS OF PAIN AT THIS TIME. SAFETY MEASURES IN PLACE WITH BED IN LOWEST LOCKED POSITION WITH SIDE RAILS UP X2. PT KEPT CLEAN, DRY, AND COMFORTABLE. CALL LIGHT WITHIN REACH. WILL ENDORSE TO ONCOMING NURSE FOR DANIEL.
[2019-05-05 07:56] VITALS: BP 121/66
[2019-05-05 08:00] VITALS: BP 121/66
--- NOTE | 2019-05-05 08:00 | NUR ---
RN NOTES RECEIVED PATIENT IN THE BED OBESE IN BARIATRIC BED, AND FORRESTE. PATIENT A/O X3, NO ACUTE RESPIRATORY DISTRESS UNLABORED BREATHING. PATIENT REFUSED PAIN , BED BOUND WITH MAXIMUM ASSIST TURN AND REPOSTION Q 2 HR. PATIENT HAS A GENERALIZED EDEMA BLE, AND GROIN AREAS, REDNESS ABDOMINAL FOLDS, AND CELLULITIS BLE. DRESSING CHANGED, AND APPLIED PRESSURE DRESSING. PATIENT TOLERATED BREAKFAST 100%. ADMINISTERED SCHEDULED MEDICATION. V/S STABLE. CALL LIGHT WITHIN TO REACH. PATIENT REFUSED IV ACCESS. GETTING PO ANTIBIOTICS. SAFETY PRECAUTION MAINTAINED ALL THE TIME.
[2019-05-05] MEDS: LINEZOLID 600 MG TABLET PO SCH ×2 (08:52→21:47)
[2019-05-05] MEDS: LACTOBACILLUS RHAMNOSUS GG 1 EACH CAP.SPRINK PO SCH ×2 (08:52→16:47)
[2019-05-05] MEDS: MUPIROCIN OINT 2% 22 GM TUBE SCH ×2 (08:52→16:47)
[2019-05-05] MEDS: FERROUS SULFATE (325 MG) 325 MG/TAB TABLET PO SCH ×2 (08:52→16:47)
[2019-05-05] MEDS: CLOTRIMAZOLE 1% 15 GM TUBE TP SCH ×2 (08:53→17:00)
--- NOTE | 2019-05-05 13:00 | NUR ---
RN NOTES PATIENT GOING TO D/C SNF PER HOSPITALIST ORDERS MAYI DUMONT.
[2019-05-05] MEDS: LEVOFLOXACIN (750 MG) 750 MG TABLET PO SCH (13:25)
[2019-05-05 16:00] VITALS: BP 138/77
--- NOTE | 2019-05-05 18:30 | NUR ---
RN NOTES PATIENT IN THE BED REFUSED PAIN, ADMINISTERED SCHEDULED MEDICATION, EAT DINNER 100 %, NEEDS ATTENDED AND ANTICIPATED. PATIENT USING TRAPEZE TO PUSH SELF IN THE BED, AND ASSIST TURN AND REPOSTION Q 2 HR. PATIENT WILL NOT DISCHARGE TODAY BECAUSE BARIATRIC BED NOT DELIVERED YET TO THE SNF. PATIENT AWARE OF. CALL LIGHT WITHIN TO REACH. ENDORSED ONCOMING NURSE FOLLOW PLAN OF CARE.
--- NOTE | 2019-05-05 19:15 | NUR ---
MS RN NOTES RECEIVED PT IN BED AWAKE AND ABLE TO MAKE NEEDS KNOWN. PT A/O X3. RESPIRATIONS EVEN AND UNLABORED WITH NO S/S OF ACUTE DISTRESS OR SOB NOTED. NO COMPLAINTS OF PAIN AT THIS TIME. PT NO NO IV ACCESS AT THIS TIME. SAFETY MEASURES IN PLACE WITH BED IN LOWEST LOCKED POSITION WITH SIDE RAILS UP X2. CALL LIGHT WITHIN REACH. WILL CONTINUE TO MONITOR.
[2019-05-05 20:00] VITALS: BP 152/76
[2019-05-05] MEDS: ENOXAPARIN SODIUM 40 MG/0.4 ML DISP.SYRIN SQ SCH (21:49)
--- NOTE | 2019-05-06 07:46 | NUR ---
MS RN NOTES PATIENT RECEIVED RESTING INSIDE ROOM. AWAKE, ALERT AND ORIENTED X 4, NO ACUTE DISTRESS. DENIES ANY PAIN OR DISCOMFORT. NO CHANGES IN LOC NOTED AT THIS TIME. PATIENT CALM AND RELAXED. MAINTAINED ISOLATION PRECAUTIONS. WILL CONTINUE TO MONITOR. BED LOCKED AND IN LOW POSITION. BILATERAL UPPER SIDE RAILS UP AND LOCKED. CALL LIGHT WITHIN EASY REACH
[2019-05-06 08:00] VITALS: BP 140/74
[2019-05-06] MEDS: FERROUS SULFATE (325 MG) 325 MG/TAB TABLET PO SCH ×2 (08:32→16:24)
[2019-05-06] MEDS: LINEZOLID 600 MG TABLET PO SCH ×2 (08:32→20:50)
[2019-05-06] MEDS: LACTOBACILLUS RHAMNOSUS GG 1 EACH CAP.SPRINK PO SCH ×2 (08:32→16:24)
[2019-05-06] MEDS: MUPIROCIN OINT 2% 22 GM TUBE SCH ×2 (08:33→16:25)
[2019-05-06] MEDS: CLOTRIMAZOLE 1% 15 GM TUBE TP SCH ×2 (10:33→16:25)
--- NOTE | 2019-05-06 11:40 | NUR ---
MS RN NOTES PATIENT WITH DISCHARGE PLANNING TO SNF, ATB TO CONTINUE PER ID RECOMMENDATION FOR DURATION. PLACED CALL TO DR SCHROEDER'S OFFICE, SPOKE WITH ANSWERING SERVICE, VERBALIZED THAT DR SCHROEDER WILL HAVE APPLICATIONS PROCESSOR CALL PAULINO FISHER FOR RECOMMENDATIONS.
--- NOTE | 2019-05-06 12:04 | NUR ---
MS RN NOTES RECEIVED CALL BACK FROM DEANDRE SAVAGE, ID HEALTH AND SAFETY INSTRUCTOR. ZYVOX AND LEVAQUIN PO TO HAVE A TOTAL DURATION 14 DAYS EACH.
[2019-05-06] MEDS: LEVOFLOXACIN (750 MG) 750 MG TABLET PO SCH (12:11)
[2019-05-06 16:00] VITALS: BP 137/78
--- NOTE | 2019-05-06 18:40 | NUR ---
MS RN NOTES PATIENT RESTING INSIDE ROOM. AWAKE, A/O X 4, NO ACUTE DISTRESS. PATIENT DENIES ANY PAIN OR DISCOMFORT. NO CHANGES IN LOC NOTED AT THIS TIME. MAINTAINED ISOLATION PRECAUTIONS. PATIENT ABLE TO UTILIZE OVERBED TRAPEZE. SAFETY PRECAUTIONS IN PLACE. WILL ENDORSE TO INCOMING SHIFT FOR DANIEL. BED LOCKED AND IN LOW POSITION. BILATERAL UPPER SIDE RAILS UP AND LOCKED. CALL LIGHT WITHIN EASY REACH
--- NOTE | 2019-05-06 19:23 | NUR ---
RN OPENING NOTES RECEIVED PATIENT IN BED AWAKE, RESTING. A/O X 4. RESPIRATIONS EVEN AND UNLABORED WITH EQUAL RISE AND FALL OF CHEST. NO IV SITE NOTED. PATIENT DENIES ANY PAIN OR DISCOMFORT AT THIS TIME. ALL NEEDS ATTENDED AT THIS TIME. WILL MAINTAIN ISOLATION PRECAUTIONS. PATIENT HAS OVERBED TRAPEZE AND IS ABLE TO UTILIZE IT. SAFETY PRECAUTIONS IMPLEMENTED; CALL LIGHT WITHIN REACH, BED LOWEST POSITION, BED LOCKED, BILATERAL UPPER SIDE RAILS UP AND LOCKED. WILL CONTINUE TO MONITOR PATIENT.
[2019-05-06 20:00] VITALS: BP 125/61
[2019-05-06 20:05] VITALS: BP 125/61
[2019-05-06] MEDS: ENOXAPARIN SODIUM 40 MG/0.4 ML DISP.SYRIN SQ SCH (20:52)
--- NOTE | 2019-05-07 06:15 | NUR ---
RN CLOSING NOTES PATIENT IN BED SLEEPING COMFORTABLY, EASILY AROUSABLE TO VOICE. RESPIRATIONS EVEN AND UNLABORED WITH EQUAL RISE AND FALL OF CHEST. NO IV SITE. NO SIGNS OF FACIAL GRIMACING INDICATING PAIN OR DISCOMFORT AT THIS TIME. ALL DUE MEDS GIVEN AND STABLE THROUGHOUT THE SHIFT. PATIENT KEPT CLEAN, DRY, AND COMFORTABLE. WOUND TREATMENT DONE. ALL NEEDS ATTENDED AT THIS TIME. ISOLATION PRECAUTIONS MAINTAINED. SAFETY PRECAUTIONS IMPLEMENTED; CALL LIGHT WITHIN REACH, BED LOWEST POSITION, BED LOCKED, BILATERAL UPPER SIDE RAILS UP AND LOCKED. WILL CONTINUE TO MONITOR PATIENT AND THEN WILL ENDORSE TO DAYSHIFT NURSE FOR CONTINUITY OF CARE.
[2019-05-07 06:58] LABS: ALBUMIN 2.8 g/dL (3.4-5.0); BILIRUBIN,TOTAL 0.2 mg/dL (0.2-1.0); CREATININE 0.9 mg/dL (0.6-1.3); TOTAL PROTEIN, SERUM 8.2 g/dL (6.4-8.2)
[2019-05-07 07:03] LABS: BASOPHILS # (AUTO) 0.1 /CMM (0.0-0.2); BASOPHILS % (AUTO) 0.7 % (0.0-2.0); EOSINOPHILS % (AUTO) 10.1 % (0.0-6.0); HEMATOCRIT 40 % (39-51); HEMOGLOBIN 12.7 g/dL (13.5-17.5); LYMPHOCYTES # (AUTO) 1.9 /CMM (0.8-4.8); MEAN CORPUSCULAR HGB CONC 32 g/dl (31.0-36.0); MEAN CORPUSCULAR VOLUME 79 fL (80-96); MONOCYTES % (AUTO) 9.9 % (2.0-12.0); NEUTROPHILS # (AUTO) 6.3 /CMM (1.8-8.9); NEUTROPHILS % (AUTO) 61.3 % (43.0-81.0); PLATELET COUNT (AUTO) 365 /CMM (150-450); RED BLOOD CELL COUNT(AUTO) 5.06 MIL/uL (4.5-6.0); WHITE BLOOD COUNT (AUTO) 10.3 K/uL (4.3-11.0)
--- NOTE | 2019-05-07 07:38 | NUR ---
MS RN NOTES PATIENT RECEIVED RESTING INSIDE ROOM. AWAKE, ALERT AND ORIENTED X 4, NO ACUTE DISTRESS, DENIES ANY PAIN OR DISCOMFORT. NO CHANGES IN LOC NOTED. PATIENT CALM AND RELAXED. MAINTAINED ISOLATION PRECAUTIONS. WILL CONTINUE TO MONITOR. BED LOCKED AND IN LOW POSITION. BILATERAL UPPER SIDE RAILS UP AND LOCKED. CALL LIGHT WITHIN EASY REACH
[2019-05-07 08:00] VITALS: BP 143/75
[2019-05-07] MEDS: LACTOBACILLUS RHAMNOSUS GG 1 EACH CAP.SPRINK PO SCH ×2 (08:24→16:48)
[2019-05-07] MEDS: LINEZOLID 600 MG TABLET PO SCH ×2 (08:24→20:47)
[2019-05-07] MEDS: FERROUS SULFATE (325 MG) 325 MG/TAB TABLET PO SCH ×2 (08:24→16:48)
[2019-05-07] MEDS: MUPIROCIN OINT 2% 22 GM TUBE SCH ×2 (08:26→16:49)
[2019-05-07] MEDS: CLOTRIMAZOLE 1% 15 GM TUBE TP SCH ×2 (08:26→16:49)
[2019-05-07] MEDS: LEVOFLOXACIN (750 MG) 750 MG TABLET PO SCH (12:01)
--- NOTE | 2019-05-07 15:08 | NUR ---
MS RN NOTES PLACED CALL TO [facility] ([phone]) TO GIVE REPORT, SPOKE WITH AVANI HAHN AND VERBALIZED THAT THEY HAVE NOT RECEIVED THE BARIATRIC BED YET. CASE MANAGEMENT MADE AWARE. WILL CONTINUE TO MONITOR
--- NOTE | 2019-05-07 15:18 | NUR ---
MS RN NOTES RECEIVED CALL BACK FROM AVANI HAHN FROM [facility] ([phone]). VERBALIZED THAT HER D.O.N. SAID THAT THE PATIENT'S BED IS ON THE WAY TO THE FACILITY. REPORT GIVEN FOR DANIEL. WILL CONTINUE TO MONITOR
[2019-05-07 16:00] VITALS: BP 138/72
--- NOTE | 2019-05-07 18:43 | NUR ---
MS RN NOTES PATIENT RESTING INSIDE ROOM. NO ACUTE DISTRESS. DENIES ANY PAIN OR DISCOMFORT. SAFETY PRECAUTIONS IN PLACE. MAINTAINED ISOLATION PRECAUTIONS. PATIENT KEPT CLEAN, DRY AND COMFORTABLE. WILL ENDORSE TO INCOMING SHIFT FOR DANIEL. BED LOCKED AND IN LOW POSITION. BILATERAL UPPER SIDE RAILS UP AND LOCKED. CALL LIGHT WITHIN EASY REACH.
--- NOTE | 2019-05-07 19:25 | NUR ---
MS/RN NOTES RECEIVED PATIENT LYING IN BED. PT. IS AWAKE, ALERT AND ORIENTED X3. BREATHING EVEN AND UNLABORED ON ROOM AIR. NO SOB, RESPIRATORY DISTRESS OR COMPLAINTS OF PAIN NOTED AT THIS TIME. PT. REMAINS WITH NO IV ACCESS, MD AWARE. PT. WILL BE DISCHARGED TONIGHT TO [facility], SCHEDULED PICKUP IS 1999. PER DAYSHIFT NURSE PT. EXITCARE, DISCHARGE PAPERWORK AND BELONGINGS LIST ARE SIGNED AND COMPLETED. ORIGINALS PLACED IN CHART. PER DAYSHIFT NURSE REPORT WAS GIVEN TO AVANI HAHN AT [facility]. BED LOCKED AND IN LOWEST POSITION, SIDE RAILS UP X3, BED ALARM ON, CALL LIGHT WITHIN REACH, WILL CONTINUE TO MONITOR.
--- NOTE | 2019-05-07 23:58 | NUR ---
MS/RN NOTES PT. IS AWAKE, ALERT AND ORIENTED X3. BREATHING EVEN AND UNLABORED ON ROOM AIR. NO SOB, RESPIRATORY DISTRESS OR COMPLAINTS OF PAIN NOTED AT THIS TIME. PT. EXITCARE, DISCHARGE PAPERWORK AND BELONGINGS LIST ARE SIGNED AND COMPLETED. ORIGINALS PLACED IN CHART. TRANSPORT ARRIVED TO [facility] PATIENT. REMOVED PT. ID BAND. ALL PT. BELONGINGS ACCOUNTED FOR AND PRESENT WITH PATIENT. PT. LEFT THE FLOOR IN STABLE CONDITION VIA GURNEY ACCOMPANIED BY EMT'S AT [id number].
== END 2019-05-07 22:05 | DRG 383 ==
LOC: ER 12:13 → MED 14:57
PROVIDERS: ADMIT Nurse Practitioner Acute Care; ATTEND Nurse Practitioner Acute Care
DX: L03.115 Cellulitis of right lower limb (principal); J15.6 Pneumonia due to other Gram-negative bacteria; E43 Unspecified severe protein-calorie malnutrition; I50.33 Acute on chronic diastolic (congestive) heart failure; D68.59 Other primary thrombophilia; E66.01 Morbid (severe) obesity due to excess calories; I11.0 Hypertensive heart disease with heart failure; Z68.44 Body mass index [BMI] 60.0-69.9, adult; L03.116 Cellulitis of left lower limb; I89.0 Lymphedema, not elsewhere classified; I70.0 Atherosclerosis of aorta; I73.9 Peripheral vascular disease, unspecified; D50.9 Iron deficiency anemia, unspecified; I87.2 Venous insufficiency (chronic) (peripheral); B95.62 Methicillin resistant Staphylococcus aureus infection as the cause of diseases classified elsewhere; B96.4 Proteus (mirabilis) (morganii) as the cause of diseases classified elsewhere; B96.5 Pseudomonas (aeruginosa) (mallei) (pseudomallei) as the cause of diseases classified elsewhere; B95.2 Enterococcus as the cause of diseases classified elsewhere; Z16.21 Resistance to vancomycin; Z22.322 Carrier or suspected carrier of Methicillin resistant Staphylococcus aureus
CPT/HCPCS: 36415; 71045-TC; 80048-TC; 80053-TC; 80061-TC; 80076-TC; 80202-TC; 83540-TC; 83605-TC; 83735-TC; 83880; 84100-TC; 84484-TC; 85025-TC; 85730-TC; 87040-TC; 87070-TC; 87081-TC; 87186-TC; 93307-TC; 93970-TC; 97110-TC; 97112-TC; 97116-TC; 97530-TC; A4216; A6253; A6403; G0378; J1580; J1650; J1940; J1956; J2020; J3370; J7050; J7060

== ENCOUNTER 2020-02-03 11:08 | Inpatient (IN) | payer MEDICARE, OTHER ==
[~2020-02-03] VITALS: Ht 180.3 cm; Wt 239.0 kg
[2020-02-03] MEDS ORDERED: TDAP [DIPH/PERTUSSIS/TET] 0.5 ML VIAL IM ONE ×2 (12:00→14:09)
--- NOTE | 2020-02-03 12:16 | NUR ---
MOVE SHEET SUBMITTED AND CALLED FOR MS BED.
[2020-02-03] MEDS ORDERED: FERR325T24 PO (12:17)
[2020-02-03] MEDS ORDERED: MAGN500C16 PO (12:17)
[2020-02-03] MEDS ORDERED: ERGO500014 MT (12:17)
[2020-02-03] MEDS ORDERED: IV NS 0.9% 500 ML BAG IV ONE (12:30)
[2020-02-03] MEDS ORDERED: PIPERACILLIN /TAZOBACTAM 3.375 G in IV D5W 50 ML IV ONE (12:30)
[2020-02-03 12:50] LABS: BASOPHILS # (AUTO) 0.1 /CMM (0.0-0.2); BASOPHILS % (AUTO) 0.5 % (0.0-2.0); EOSINOPHILS % (AUTO) 1.3 % (0.0-6.0); HEMATOCRIT 41 % (39-51); HEMOGLOBIN 12.8 g/dL (13.5-17.5); LYMPHOCYTES # (AUTO) 1.5 /CMM (0.8-4.8); LYMPHOCYTES % (AUTO) 9.4 % (20.0-44.0); MEAN CORPUSCULAR HGB CONC 31 g/dl (31.0-36.0); MEAN CORPUSCULAR VOLUME 83 fL (80-96); MONOCYTES # (AUTO) 1.1 /CMM (0.1-1.30); MONOCYTES % (AUTO) 7.1 % (2.0-12.0); NEUTROPHILS # (AUTO) 12.8 /CMM (1.8-8.9); NEUTROPHILS % (AUTO) 81.7 % (43.0-81.0); PLATELET COUNT (AUTO) 380 /CMM (150-450); RED BLOOD CELL COUNT(AUTO) 4.91 MIL/uL (4.5-6.0); WHITE BLOOD COUNT (AUTO) 15.7 K/uL (4.3-11.0)
--- NOTE | 2020-02-03 12:52 | NUR ---
[place] FROM HOME TO ER BED 7. AAOX4. NOT IN RESP DISTRESS. BROUGHT IN FOR A GROUND LEVEL FALL WHILE TAKING SHOWER. PER PT, HE SLIPPED LANDED ON THE GLASS SHOWER DOOR CAUSING IT TO SHATTER AND LANDED ON HIS BUTT. NOTED MULTIPLE ABBRASION ON L ELBOW, BILAT KNEES, ABDOMEN AND R FOOT. PT ALSO NOTED BILAT LOWER LEG SWELLING AND REDNESS. ALL [place] ARE INTACT. WAS AT THE BEDSIDE.
--- NOTE | 2020-02-03 12:58 | NUR ---
PAGED [facility].
[2020-02-03 13:04] LABS: CALCIUM, SERUM 8.7 mg/dL (8.5-10.1); POTASSIUM 3.6 mmol/L (3.5-5.1)
[2020-02-03 13:07] LABS: ALBUMIN 2.8 g/dL (3.4-5.0); BILIRUBIN,DIRECT 0.1 mg/dL (0.0-0.2); BILIRUBIN,TOTAL 0.3 mg/dL (0.2-1.0); TOTAL PROTEIN, SERUM 9.5 g/dL (6.4-8.2)
--- NOTE | 2020-02-03 13:29 | NUR ---
COVID SWAB DONE AND SENT TO LAB
[2020-02-03] MEDS ORDERED: ONDANSETRON HCL/PF 4 MG/2 ML VIAL IVP PRN (13:30)
[2020-02-03] MEDS ORDERED: ACETAMINOPHEN 325 MG TABLET PO PRN (13:30)
[2020-02-03] MEDS ORDERED: MAGNESIUM HYDROXIDE 30 ML UDC PO PRN (13:30)
[2020-02-03] MEDS ORDERED: HYDROCODONE/APAP 5/325MG TABLET PO PRN (13:30)
[2020-02-03] MEDS ORDERED: Z GUARD REMEDY 2 OZ OINT TP PRN (13:30)
[2020-02-03] MEDS ORDERED: MAG HYDROX/AL HYDROX/SIMETH 30 ML UDC PO PRN (13:30)
--- NOTE | 2020-02-03 13:50 | NUR ---
EMT AT THE BEDSIDE FOR WOUND CLEANING
[2020-02-03] MEDS ORDERED: CEFTRIAXONE 1 G in IV D5W 50 ML IV SCH ×2 (15:00→16:00)
--- NOTE | 2020-02-03 15:00 | NUR ---
CALLED RN SUP FOR ROOM
--- NOTE | 2020-02-03 15:31 | NUR ---
ROOM ASSIGNEMENT; 307-1 MS
--- NOTE | 2020-02-03 16:10 | NUR ---
REPORT GIVEN TO AVANI MENDOZA FOR DANIEL
--- NOTE | 2020-02-03 17:12 | NUR ---
PT TRANSPORTED TO UNIT ON [facility] WITH EMT AND RN AT BEDSIDE. PT IS IN STABLE CONDITION FOR TRANSPORT. NAD NOTED DURING TRANSPORT.
--- NOTE | 2020-02-03 18:25 | NUR ---
MS AVANI NOTES RECEIVED PT VIA GURNEY FROM ER DEPT, ARRIVED ON THE FLOOR AT 1710. PT AWAKE, A/OX4. PT TOLERATING RA, WITH NO ACUTE RESPIRATORY DISTRESS NOTED. PT DENIES ANY PAIN OR DISCOMFORT AT THE TIME WELL. PT ABLE TO PROVIDE MEDICAL HISTORY. PIV TO RHAND G20, STARTED WITH IV CEFTRIAXONE, INTACT AND FLUID INFUSING WELL. PT ORIENTED TO ROOM, STAFFS, ETC. PT KEPT COMFORTABLE. CALL LIGHT KEPT WITHIN REACH. PT'S BED IN LOWEST LOCKED POSITION WITH SRX3. WILL ENDORSE TO INCOMING NIGHT NURSE FOR BARIATRIC BED AND SKIN ASSESSMENT PICTURES.
[2020-02-03] MEDS: ENOXAPARIN SODIUM 40 MG/0.4 ML DISP.SYRIN SQ SCH (18:56)
--- NOTE | 2020-02-03 19:53 | NUR ---
MS RN OPENING NOTES RECEIVED PATIENT RESTING IN BED COMFORTABLY; A/OX4; BREATHING EVEN AND UNLABORED; TOLERATING ROOM AIR WELL; NO SOB NOTED; R HAND #20 SL INTACT AND PATENT, FLUSHING WELL; NO S/S OF REDNESS OR INFILTRATION NOTED; PER AM SHIFT, PATIENT AGREED FOR SKIN ASSESSMENT/PICTURES AFTER EATING DINNER; PATIENT ABLE TO MAKE NEEDS KNOWN; SAFETY PRECAUTIONS IMPLEMENTED; BED LOCKED IN LOW POSITION; SIDE RAILSX2; CALL LIGHT WITHIN EASY REACH; WILL CONT TO MONITOR
[2020-02-03 20:00] VITALS: BP 134/63
--- NOTE | 2020-02-03 21:56 | NUR ---
MS RN NOTES PER AM SHIFT, BARIATRIC BED ORDERED, AWAITING BED; WILL INFORM DAY SHIFT IF BED DOES NOT ARRIVE THROUGHOUT SHIFT
--- NOTE | 2020-02-04 01:43 | NUR ---
MS RN NOTES R HAND #20 SL IV PULLED OUT ON ACCIDENT HE WAS TRYING TO REPOSITION HIMSELF IN THE BED; IV TIP INTACT, NO S/S OF BLEEDING; PER PATIENT, HE WOULD LIKE TO REST PRIOR TO IV RE-INSERTION; PATIENT ALSO REFUSING SKIN ASSESSMENT/PICTURES AT THIS TIME; CHARGE NURSE AWARE; WILL CONT TO MONITOR
--- NOTE | 2020-02-04 04:49 | NUR ---
MS RN NOTES IV ACCESS OBTAINED, RIGHT HAND # 20 SL, INTACT AND PATENT, FLUSHING WELL; WILL CONT TO MONITOR
[2020-02-04 06:46] LABS: BASOPHILS % (AUTO) 0.5 % (0.0-2.0); EOSINOPHILS % (AUTO) 3.3 % (0.0-6.0); HEMATOCRIT 37 % (39-51); LYMPHOCYTES # (AUTO) 1.7 /CMM (0.8-4.8); LYMPHOCYTES % (AUTO) 15.9 % (20.0-44.0); MEAN CORPUSCULAR HGB CONC 32 g/dl (31.0-36.0); MEAN CORPUSCULAR VOLUME 82 fL (80-96); MONOCYTES # (AUTO) 0.9 /CMM (0.1-1.30); MONOCYTES % (AUTO) 8.7 % (2.0-12.0); NEUTROPHILS # (AUTO) 7.6 /CMM (1.8-8.9); NEUTROPHILS % (AUTO) 71.6 % (43.0-81.0); PLATELET COUNT (AUTO) 336 /CMM (150-450); RED BLOOD CELL COUNT(AUTO) 4.57 MIL/uL (4.5-6.0); WHITE BLOOD COUNT (AUTO) 10.6 K/uL (4.3-11.0)
--- NOTE | 2020-02-04 07:00 | NUR ---
MS RN CLOSING NOTES PATIENT RESTING IN BED COMFORTABLY; A/OX4; BREATHING EVEN AND UNLABORED; PATIENT ON ROOM AIR; TOLERATING WELL; PATIENT REFUSED SKIN ASSESSMENT/PICTURES; CHARGE NURSE AWARE; PATIENT ABLE TO MAKE NEEDS KNOWN; R HAND #20 SL INTACT AND PATENT, FLUSHING WELL; ALL NEEDS RENDERED; SAFETY PRECAUTIONS IMPLEMENTED; BED LOCKED IN LOW POSITION; SIDE RAILSX2; CALL LIGHT WITHIN REACH; WILL ENDORSE DANIEL TO ONCOMING SHIFT
--- NOTE | 2020-02-04 07:42 | NUR ---
RN OPENING NOTES RECEIVED PATIENT RESTING IN BED COMFORTABLY; ALERT AND ORIENTED X4. NO CARDIAC OR RESPIRATORY DISTRESS NOTED. NO SOB NOTED BREATHING EVEN AND UNLABORED; PATIENT ON ROOM AIR; TOLERATING WELL; IV ACCESS NOTED ON R HAND #20 SL INTACT AND PATENT, FLUSHING WELL; NO S/S OF INFECTION OR INFILTRATION NOTED. SAFETY PRECAUTIONS IMPLEMENTED; BED LOCKED IN LOW POSITION; SIDE RAILS X2; CALL LIGHT WITHIN REACH; BED ALARM ON. WILL CONT TO MONITOR.
[2020-02-04 07:46] LABS: CALCIUM, SERUM 8.5 mg/dL (8.5-10.1); CREATININE 0.9 mg/dL (0.6-1.3); MAGNESIUM 2.1 mg/dL (1.8-2.4); PHOSPHORUS 2.7 mg/dL (2.5-4.9); POTASSIUM 3.9 mmol/L (3.5-5.1)
[2020-02-04 08:00] VITALS: BP 148/66
[2020-02-04] MEDS: FERROUS SULFATE (325 MG) 325 MG/TAB TABLET PO SCH (08:10)
[2020-02-04] MEDS: MAGNESIUM OXIDE 400 MG TABLET PO SCH (08:10)
[2020-02-04] MEDS: MORPHINE SULFATE INJ 2 MG/ML DISP.SYRIN IV PRN ×2 (08:22→13:59)
--- NOTE | 2020-02-04 10:57 | NUR ---
WOUND CARE CONSULT: PT PRESENTS WITH RASH TO ABDOMINAL/GROIN FOLDS AND BUTTOCKS, LEFT ELBOW ABRASION, MULTIPLE SCRATCHES ON BODY, REDNESS TO LOWER LEGS WITH SOME BLEEDING TO TOES, PRESENT ON ADMISSION. RECOMMENDATIONS MADE FOR WOUND/SKIN CARE AND PROTECTION. DISCUSSED WITH NURSING STAFF. RECOMMEND DPM CONSULT. DR EARL NOTIFIED OF CONSULT REQUEST. PT STATES THAT HE FELL IN SHOWER AND SHATTERED GLASS SHOWER DOOR. SOCIAL SERVICE CONSULT PLACED. [facility] AIR BED ON ORDER. IN AGREEMENT WITH PLAN OF CARE.
[2020-02-04] MEDS: CEFTRIAXONE 2 G in IV D5W 100 ML IV SCH (11:17)
--- NOTE | 2020-02-04 14:00 | NUR ---
SCD PUMPS PT REFUSING TO USE SCP PUMPS. EXPLAINED RISKS, CONSEQUENCES AND NEGATIVE OUTCOMES OF NON COMPLIANT BEHAVIOR. ALSO EXPLIANED BENEFITS OF DVT PYMP. STILL REFUSED. PER PT, ITS UNCOMFORTABLE.
--- NOTE | 2020-02-04 14:30 | NUR ---
WOUND TX WOUND TX DONE WITH THE PT PER MD ORDERS. TOLERATED WELL.
[2020-02-04 16:00] VITALS: BP 159/84
[2020-02-04] MEDS: CLOTRIMAZOLE 1% 15 GM TUBE TP SCH (16:12)
--- NOTE | 2020-02-04 16:17 | NUR ---
11am: Fleet Operations Manager consult requested per MD Burciaga because the patient lives alone and fell. SW conducted the assessment at bedside. Patient was alert and orientated x4. Patient was able to confirm demographics from the face sheet. Patient reported that he has a walker and a cane at home for use, pt reports I only use it when I am sore. Ill likely use it more after this. Patient shared that in the past he did apply for In-Home Support Services but has not heard anything back. Patient reported that he would like more resources so he can hire help. Patient shared that he would like this help primarily to help him clean and run errands. Patient receives approximately $965 in Social Security Pathfinder App. Patient reported no history or drug/alcohol use. Patient does not report diagnosed psychiatric diagnosis. Patient reports no history or current thoughts of suicidal or homicidal ideation, I do not want to go out that way. This social worker masters will provide the In-Home Support Service application to the patient. This garbage pick up worker will also provide the eligibility criteria, how to apply by phone, mail, and fax that SYLVIA found directly off the [email or web address]/en/stgvpb-mld-kxkedzvv/ihss.html website. SW to remain available for all needs.
--- NOTE | 2020-02-04 19:00 | NUR ---
BARIATRIC BED PT WAS TRANSFERRED TO BARIATRIC BED WITH 7 PERSON ASSIST.
--- NOTE | 2020-02-04 19:22 | NUR ---
RN CLOSING NOTES PATIENT RESTING IN BED COMFORTABLY; ALERT AND ORIENTED X4. NO CARDIAC OR RESPIRATORY DISTRESS NOTED. NO SOB NOTED BREATHING EVEN AND UNLABORED; PATIENT ON ROOM AIR; TOLERATING WELL; IV ACCESS NOTED ON R HAND #20 SL INTACT AND PATENT, FLUSHING WELL; NO S/S OF INFECTION OR INFILTRATION NOTED. PT TRANSFERRED TO BARIATRIC BED. ALL NEEDS MET AND ATTENDED. PAIN MANAGED THROUGHOUT THE SHIFT. SAFETY PRECAUTIONS IMPLEMENTED; BED LOCKED IN LOW POSITION; SIDE RAILS X2; CALL LIGHT WITHIN REACH; BED ALARM ON. WILL CONT TO MONITOR.
[2020-02-04 20:00] VITALS: BP 132/65
--- NOTE | 2020-02-04 20:00 | NUR ---
MS RN OPENING NOTE: Received patient from morning nurse. Patient is in bed watching TV, comfortably. Patient denies pain or discomfort at this time. Patient is alert and oriented and makes his needs known. Patient on room air. No distress or SOB noted; patient breathing equal and unlabored. IV access noted on right hand, 20g, patent, flushes well, no redness, no infiltration. Safety precaution is in place, bed is locked, on the lowest level, alarm is on, side rails x2 are up, and call light is within reach. Will continue to monitor.
[2020-02-04] MEDS: ENOXAPARIN SODIUM 40 MG/0.4 ML DISP.SYRIN SQ SCH (21:42)
--- NOTE | 2020-02-05 06:52 | NUR ---
MS RN CLOSING NOTE: Patient in bed sleeping comfortably but easily aroused. Patient shows no signs of pain or discomfort at this time. Patient on room air. No distress or SOB noted; patient breathing equal and unlabored. Safety precaution is in place, bed is locked, on the lowest level, alarm is on, side rails x2 are up, and call light is within reach. Will endorse to next shift.
--- NOTE | 2020-02-05 07:50 | NUR ---
RN OPENING NOTE Patient is resting in bed, A/O x4, showing no signs of acute distress or SOB, stable on RA. IV line in the right hand is clean and intact flushing well. Patient has no complaints of pain at this time. Patient on bariatric mattress. patient uses urinal with assistance clear yellow output. Bed is in lowest position, side rails x3 in upright position, call light is within reach, fall safety and aspiration precautions enforced. Will continue with plan of care.
[2020-02-05 08:00] VITALS: BP 141/63
[2020-02-05] MEDS: CLOTRIMAZOLE 1% 15 GM TUBE TP SCH ×2 (09:00→17:37)
[2020-02-05] MEDS: FERROUS SULFATE (325 MG) 325 MG/TAB TABLET PO SCH (09:35)
[2020-02-05] MEDS: MAGNESIUM OXIDE 400 MG TABLET PO SCH (09:36)
[2020-02-05] MEDS: CEFTRIAXONE 2 G in IV D5W 100 ML IV SCH (12:44)
--- NOTE | 2020-02-05 18:42 | NUR ---
RN CLOSING NOTE Patient is resting in bed, A/O x4, showing no signs of acute distress or SOB, stable on RA. IV line in the right hand is clean and intact flushing well. Patient on bariatric mattress. Wound care completed as directed. All patient needs met, all due medications given, patient kept clean and dry throughout shift. Bed is in lowest position, side rails x3 in upright position, call light is within reach, fall safety and aspiration precautions enforced. Will endorse to shift supervisor film processing.
[2020-02-05 20:00] VITALS: BP 133/75
--- NOTE | 2020-02-05 20:00 | NUR ---
MS RN OPENING NOTE: Patient is awake and alert x 4, in bed, resting. Patient on room air. He is breathing well, unlabored and equal. Shows no signs of SOB or distress. Noted IV access on right hand 22g. Flushes well, patent, no redness, or infiltration. Patient denies pain or discomfort at this time. Patient on bariatric mattress. Safety precaution is in place, bed is in the lowest level, locks are on, alarm is on, side rails x2 are up, and call light is within reach. Will continue to monitor.
[2020-02-05 20:48] VITALS: BP 135/75
[2020-02-05] MEDS: ENOXAPARIN SODIUM 40 MG/0.4 ML DISP.SYRIN SQ SCH (20:56)
[2020-02-06 06:44] LABS: BASOPHILS % (AUTO) 0.3 % (0.0-2.0); EOSINOPHILS % (AUTO) 4.7 % (0.0-6.0); HEMATOCRIT 40 % (39-51); HEMOGLOBIN 12.6 g/dL (13.5-17.5); LYMPHOCYTES # (AUTO) 1.2 /CMM (0.8-4.8); LYMPHOCYTES % (AUTO) 11.5 % (20.0-44.0); MEAN CORPUSCULAR HGB CONC 32 g/dl (31.0-36.0); MEAN CORPUSCULAR VOLUME 83 fL (80-96); MONOCYTES # (AUTO) 0.9 /CMM (0.1-1.30); NEUTROPHILS # (AUTO) 7.7 /CMM (1.8-8.9); NEUTROPHILS % (AUTO) 74.5 % (43.0-81.0); PLATELET COUNT (AUTO) 327 /CMM (150-450); RED BLOOD CELL COUNT(AUTO) 4.77 MIL/uL (4.5-6.0); WHITE BLOOD COUNT (AUTO) 10.4 K/uL (4.3-11.0)
--- NOTE | 2020-02-06 06:49 | NUR ---
MS RN CLOSING NOTE: Patient in bed, awake and alert. Patient on room air. He is breathing well, unlabored and equal. Shows no signs of SOB or distress. Safety precaution is in place, bed is in the lowest level, locks are on, alarm is on, side rails x2 are up, and call light is within reach. Will endorse to morning shift.
[2020-02-06 06:55] LABS: CALCIUM, SERUM 8.9 mg/dL (8.5-10.1); CREATININE 0.7 mg/dL (0.6-1.3); POTASSIUM 4.2 mmol/L (3.5-5.1)
[2020-02-06 08:00] VITALS: BP 148/74
[2020-02-06] MEDS: FERROUS SULFATE (325 MG) 325 MG/TAB TABLET PO SCH (08:54)
[2020-02-06] MEDS: CLOTRIMAZOLE 1% 15 GM TUBE TP SCH (08:54)
[2020-02-06] MEDS: MAGNESIUM OXIDE 400 MG TABLET PO SCH (08:54)
[2020-02-06] MEDS ORDERED: CEPH-570 PO (09:52)
[2020-02-06] MEDS: CEFTRIAXONE 2 G in IV D5W 100 ML IV SCH (12:45)
--- NOTE | 2020-02-06 16:06 | NUR ---
SENIOR COUNSEL NOTE Patient is medically cleared for discharge. A/O x4, showing no signs of acute distress or SOB, stable on RA. Vital signs stable. Patient refused for skin photos to be taken. IV line removed, ID band removed, DC instructions provided and patient verbalized understanding. All patient needs met, all due medications given, patient kept clean and drive throughout shift. Patient left unit with assistance of 3 RNs on bariatric [facility] on [facility]ESS transportation en route to home.
== END 2020-02-06 16:00 | disposition home health service (06) | DRG 602 ==
LOC: ER 11:15 → UNDOADMIN 14:20 → MEDSG1 14:20 → MED 15:35
PROVIDERS: ADMIT Internal Medicine; ATTEND Internal Medicine
DX: L03.116 Cellulitis of left lower limb (principal); E43 Unspecified severe protein-calorie malnutrition; I50.32 Chronic diastolic (congestive) heart failure; D68.69 Other thrombophilia; Z68.45 Body mass index [BMI] 70 or greater, adult; E87.1 Hypo-osmolality and hyponatremia; E66.01 Morbid (severe) obesity due to excess calories; I89.0 Lymphedema, not elsewhere classified; E88.09 Other disorders of plasma-protein metabolism, not elsewhere classified; R23.4 Changes in skin texture; L03.115 Cellulitis of right lower limb; W19.XXXA Unspecified fall, initial encounter; Y93.9 Activity, unspecified; Y92.009 Unspecified place in unspecified non-institutional (private) residence as the place of occurrence of the external cause
CPT/HCPCS: 36415; 72100-TC; 73080-TC; 80048-TC; 80076-TC; 83735-TC; 84100-TC; 85025-TC; 87040-TC; 87081-TC; 90715; 97530-TC; A6403; C9803-CS; G0378; J0696; J1650; J2270; J2543; J7040; J7060